=== PATIENT | female | born 1945 | race Caucasian/White ===

== ENCOUNTER → 2017-03-02 | Outpatient (CLI) | payer OTHER, MEDICARE ==
[~2017-03-02] MED LIST: ASPI81TA28 PO; BRIM0.1S OPR; ESOM20CA PO; GLIP5TAB11 PO; GLIP5TAB3 PO; LOSA50TA6 PO; METF1000 PO; MULT-1092 PO; Magnesium PO; OXYC-88 PO; TIMO0.5S2 OPR
--- NOTE | 2017-03-03 08:00 | MAMMOGRAPHY REPORT ---
BILATERAL DIGITAL SCREENING MAMMOGRAM TOMOSYNTHESIS WITH CAD: 03/02/2017 CLINICAL HISTORY: Routine screening. Patient has no complaints. TECHNIQUE: Breast tomosynthesis in addition to standard 2D mammography was performed. Current study was also evaluated with a Computer Aided Detection (CAD) system. COMPARISON: Comparison is made to exams dated: 03/09/2016 mammogram, 02/27/2015 mammogram, 03/02/2016 m ammogram, 02/26/2014 mammogram, 09/25/2013 ultrasound biopsy, and 08/30/2013 mammogram - [facility]. BREAST COMPOSITION: There are scattered areas of fibroglandular density in both breasts. FINDINGS: No suspicious masses, calcifications, or areas of architectural distortion are noted in ei ther breast. There has been no significant interval change compared to prior exams. Scattered bilater al benign-appearing calcifications are not significantly changed. A biopsy marker clip is again note d in the left lateral anterior breast. Rounded asymmetry within the left lateral breast on the CC vi ew is similar to prior exams including the 2013 and 2012 exams. IMPRESSION: ACR BI-RADS CATEGORY 2: BENIGN There is no mammographic evidence of malignancy. A 1 year screening mammogram is recommended. The pa tient will receive written notification of the results. Approximately 10% of breast cancers are not detected with mammography. A negative mammographic report should not delay biopsy if a clinically suggestive mass is present. Doris Rowland M.D. /:03/02/2017 15:00:26 [employer]cery Department Manager: Taylor SKINNER,R, M, [facility] letter sent: Normal 1/2 BI-RADS Code: ACR BI-RADS Category 2: Benign
--- NOTE | 2017-04-07 11:07 | CODING QUERY MEDICAL NECESSITY ---
CQSUPPORTING DIAGNOSIS NEEDED A supporting diagnosis is required for the test/procedure performed on this patient in order for us to be reimbursed by the patient's insurance. Please provide a supporting diagnosis for the following test/procedure listed below next to the test name along with your signature. *If there is no additional diagnosis for this patient that would support the following test/procedure please document that below next to the test/procedure. Test(s)/Procedure(s) that require a supporting diagnosis: DOS 03/02/17 VITAMIN B12 Provider Signature: Date: Thank you Trinidad Crow [employer] Once completed, please kindly fax back to [phone] For questions please call [phone]
== END | disposition home or self-care (01) ==
LOC: C.MAMM 12:47
PROVIDERS: ATTEND Obstetrics & Gynecology
DX: Z12.31 Encounter for screening mammogram for malignant neoplasm of breast (principal); E11.9 Type 2 diabetes mellitus without complications; R53.83 Other fatigue; I10 Essential (primary) hypertension

== ENCOUNTER → 2017-04-11 | Day surgery (SDC) | payer OTHER, MEDICARE ==
[2017-04-04 15:01] VITALS: Ht 162.6 cm; Wt 76.8 kg
[~2017-04-11] VITALS: Ht 162.6 cm; Wt 76.8 kg
[~2017-04-11] MED LIST changes: -BRIM0.1S OPR; +BRIMONIDINE TART 0.2% OP SOLN PER DROP CHARGE OPR ONE; +BRIMONIDINE TART 0.2% OP SOLN PER DROP CHARGE OPR SCH; +BRIMONIDINE TARTRATE 0.2% 5ML OP SCH; -ESOM20CA PO; -GLIP5TAB11 PO; -Magnesium PO; -OXYC-88 PO; +PILOCARPINE HCL 2% OP SOLN PER DROP CHARGE OPR SCH; +PROPARACAINE 0.5% OP SOLN PER DROP CHARGE OPR SCH; +PrednisoLONE ACET 1% OP SUSP 5 ML BTL OP SCH; +PrednisoLONE ACET 1% OP SUSP 5 ML BTL OPR ONE
[2017-04-11 12:22] VITALS: BP 133/65; PULSE 63; O2SAT 99
--- NOTE | 2017-04-11 12:22 | Discharge Instructions-SurgCtr ---
Discharge Instructions Date of Service Apr 11, 2017. Visit Reason for Visit: Right Eye Glaucoma Discharge Discharge Diagnosis / Problem: glaucoma Discharge Goals Goal(s): Improve disease control Activity Recommendations Activity Limitations: resume your previous activity Anesthesia . Post Anesthesia Instructions: If you have had General Anesthesia or IV Sedation: * Do not drive today. * Resume driving when surgeon permits. * Do not make important decisions or sign legal documents today. * Call surgeon for: 1. Temperature elevations greater than 101 degrees F. 2. Uncontrollable pain. 3. Excessive bleeding. 4. Persistent nausea and vomiting. 5. Medication intolerance (nausea, vomiting or rash). * For nausea and vomiting use only clear liquids such as: tea, soda, bouillon until nausea subsides, then gradually increase diet as tolerated. * If you have any concerns or questions, call your surgeon's office. If physician is unavailable and it is an emergency, call 911 or go to the nearest emergency room. . Instructions / Follow-Up Instructions / Follow-Up ACTIVITY RECOMMENDATIONS: * No limitations RETURN TO SCHOOL/WORK: * No limitations DIET: * No limitations MEDICATIONS: Resume previous medications unless instructed otherwise by your surgeon. * Please use Prednisolone acetate drops prescription given to you at your office appointment as follows: 1 drop in effected eye 4 times a day for 5 days. * Continue all glaucoma drops as usual with no interruption to either eye. SPECIAL CARE INSTRUCTIONS: Call your doctor at with any concerns or problems. FOLLOW UP VISIT: Follow-up with Dr Hernandez in 1 hour. Diet Recommendations Home Diet: resume previous diet Pending Studies Studies pending at discharge: no Medical Emergencies . Who to Call and When: Medical Emergencies: If at any time you feel your situation is an emergency, please call 911 immediately. . Non-Emergent Contact Non-Emergency issues call your: [employer] . . "Provider Documentation" section prepared by Willem Hernandez. .
--- NOTE | 2017-04-11 12:24 | [facility] Operative Report ---
Operative Report Date of Service Apr 11, 2017. Operative Report Diagnosis: Glaucoma, right eye Procedure: SLT right eye, inferior 180 degrees, 55 spots, 1.6 mJ Complications: none I attest to the content of the Intraoperative Record and any orders documented therein. Any exceptions are noted below.
== END | disposition home or self-care (01) ==
LOC: X.SURG 10:34
PROVIDERS: ATTEND Ophthalmology
DX: H40.1110 Primary open-angle glaucoma, right eye, stage unspecified (principal); Z98.41 Cataract extraction status, right eye; Z98.42 Cataract extraction status, left eye; E11.9 Type 2 diabetes mellitus without complications; I10 Essential (primary) hypertension

== ENCOUNTER → 2017-07-05 | Outpatient (CLI) | payer OTHER, MEDICARE ==
[~2017-07-05] MED LIST changes: -BRIMONIDINE TART 0.2% OP SOLN PER DROP CHARGE OPR ONE; -BRIMONIDINE TART 0.2% OP SOLN PER DROP CHARGE OPR SCH; -BRIMONIDINE TARTRATE 0.2% 5ML OP SCH; -PILOCARPINE HCL 2% OP SOLN PER DROP CHARGE OPR SCH; -PROPARACAINE 0.5% OP SOLN PER DROP CHARGE OPR SCH; -PrednisoLONE ACET 1% OP SUSP 5 ML BTL OP SCH; -PrednisoLONE ACET 1% OP SUSP 5 ML BTL OPR ONE
[2017-07-05 10:04] LABS: ESTIMATED AVERAGE GLUCOSE 157 mg/dl; HA1C FLAG Normal (Normal)
== END | disposition home or self-care (01) ==
LOC: C.LAB1850 07:42
PROVIDERS: ATTEND Nurse Practitioner Family
DX: E11.9 Type 2 diabetes mellitus without complications (principal)